=== PATIENT | female | born 1960 | race Caucasian/White ===

== ENCOUNTER 2024-12-06 14:19 | Emergency (ER) | payer OTHER, SELFPAY ==
--- NOTE | ~2024-12-06 | XR_ITS ---
Examination: XR chest 2V Clinical History: y Comparison: 11/07/2008 Technique: PA and Lateral Findings: Cardiomediastinal silhouette normal size and configuration. Left epicardial fat pad accounting for haziness. Right epicardial fat pad and/or skinfold. Lungs otherwise clear. No acute bony abnormality. IMPRESSION: 1. No acute cardiopulmonary findings. Reviewed, dictated and finalized at location R.
--- NOTE | 2024-12-06 14:22 | ED.SOB ---
HPI - SOB/Dyspnea General Chief Complaint: Upper Respiratory Infection Stated Complaint: hurts to breathe Time Seen by Provider: 12/06/24 14:22 Source: patient Mode of arrival: ambulatory Limitations: no limitations History of Present Illness HPI Narrative: Dianne is a 63-year-old female patient presenting to the clinic today with complaints of fever of 103? F, shortness of breath, body aches, chills, pain with taking deep breath, productive cough, and two tick bites to the left abdomen wall. Patient has history of COPD. Oxygen saturation 96% on room air. Patient is able to speak in full sentences. Patient's daughter removed takes from her left abdomen yesterday. Patient is unaware of how long the ticks were attached. Stated the area started itching yesterday. Developed fever this morning. All her other symptoms started last night. She took naproxen for her fever. Related Data Allergies Allergy/AdvReac Type Severity Reaction Status Date / Time codeine Allergy Mild NAUSEA Verified 12/06/24 14:35 Review of Systems Review of Systems: Pertinent positives per HPI. Patient denies any fever, chills, rash, headache, visual changes, dizziness, cough, shortness of breath, chest pain, palpitations, nausea, vomiting, diarrhea, constipation, abdominal pain, or any urinary issues. PMFSH Comments At the time of my signature, I reviewed and agree with the nursing past medical, surgical, social, and family history. There is no relevant family history pertinent to the patient complaint. Exam Narrative: General: Well-developed, morbidly obese, in no apparent distress Head: Normocephalic, atraumatic Eyes: Pupils equally round and reactive to light bilaterally, EOM intact, sclera and conjunctive clear, no discharge, lids normal Ears: TMs intact and congested, ear canals clear, no drainage, grossly hearing normal. Nose: Nares patent, clear nasal discharge, no inflammation, no sinus tenderness. Mouth: Oral pharynx without lesions or masses, good dentition, MMM. Neck: Supple, trachea midline, no enlargement of anterior or posterior cervical nodes, no thyroid masses or goiter palpable. Cardio: Regular rate and rhythm, s1 and s2 normal, no murmur appreciated. Resp: Inspiratory and expiratory wheezing, no rhonchi, rales, or rubs Integumentary: [place], warm, and dry, 2 red rash area to the left lateral abdomen wall with tick remnants- very mild induration. Redness measuring approximately 3 x 2 cm Course Course Emergency Course: Portions of this record may have been created with voice recognition software. Level of Care: Express Care Visit Vital Signs Vital signs: Vital Signs Temperature 37.2 C 12/06/24 14:26 Pulse Rate 102 H 12/06/24 14:26 Respiratory Rate 20 12/06/24 14:26 Blood Pressure 124/56 L 12/06/24 14:26 Pulse Oximetry 96 12/06/24 14:26 Oxygen Delivery Room Air 12/06/24 14:26 Temperature 37.2 C 12/06/24 14:26 Pulse Rate 94 12/06/24 15:06 Respiratory Rate 24 H 12/06/24 15:06 Blood Pressure 124/56 L 12/06/24 14:26 Pulse Oximetry 97 12/06/24 15:06 Oxygen Delivery Room Air 12/06/24 14:26 Vital signs reviewed MDM - SOB/Dyspnea MDM Narrative Medical decision making narrative: At the time of visit patient is resting comfortably on the exam table. Patient appears to be nontoxic. complaints of fever of 103? F, shortness of breath, body aches, chills, pain with taking deep breath, productive cough, and two tick bites to the left abdomen wall. Patient has history of COPD. Oxygen saturation 96% on room air. Patient is able to speak in full sentences. Patient's daughter removed takes from her left abdomen yesterday. Patient is unaware of how long the ticks were attached. Stated the area started itching yesterday. Developed fever this morning. All her other symptoms started last night. She took naproxen for her fever. On exam patient has clear nasal congestion, bilateral TM congestion, oral pharynx normal, lung sounds inspiratory and expiratory wheezing, heart rates regular rate and rhythm. Has two red rash area with retained tick remnants. Very mild induration. Redness measuring approximately 3 x 2 cm. Chest x-ray and DuoNeb hand-held neb treatment was ordered. Diagnostics: Chest x-rays negative for any acute cardiopulmonary process. Medications: DuoNeb Hand-held neb treatment given in the clinic today-this improved patient's lung aeration-patient feels breathing has improved. Procedure: Removal of tick foreign body to the left abdomen wall. Area was cleansed with alcohol and a 23 gauge needle was used to remove tick remnants. Patient tolerated well. Triple antibiotic ointment Band-Aid was applied. Plan: I suspect patient has COPD exacerbation/tick bites. Prescription for doxycycline and prednisone was sent to the pharmacy. Patient reports improvement of shortness of breath after breathing treatment. Supportive measures were discussed with the patient and they voiced understanding discharge instructions and agrees to treatment plan. Return precautions reviewed Differential Diagnosis Differential diagnosis: Likely acute exacerbation of chronic obstructive airways disease, congestive heart failure, community acquired pneumonia, asthma with exacerbation, pulmonary embolism and other (Tick bites-retained tick foreign body) Lab Data Labs: Lab Results 12/06/24 Range/Units 14:30 POC Influenza A Ag Negative (Negative) POC Influenza B Ag Negative (Negative) POC SARS CoV-2 Ag Negative (Negative) Imaging Data Radiologist's impression: ITS Impressions Chest X-Ray 12/06/24 14:49 IMPRESSION: 1. No acute cardiopulmonary findings. Discharge Plan Discharge Clinical Impression: Acute exacerbation of chronic obstructive pulmonary disease Tick bite of abdominal wall Qualifiers: Encounter type: initial encounter Qualified Code(s): S30.861A - Insect bite (nonvenomous) of abdominal wall, initial encounter Patient Disposition: Home Condition: Stable Instructions: Antibiotic Form, Tick Bite (ED), COPD (Chronic Obstructive Pulmonary Disease) (ED) Additional Instructions: Chest x-rays negative for any acute cardiopulmonary process. DuoNeb treatment given in the clinic today. Take prescription medications only as prescribed-doxycycline and prednisone Continue medications as prescribed Increase fluids and stay well hydrated May take Tylenol or motrin as directed on bottle for pain/fever May use Flonase 1 spray in each nare daily May take OTC antihistamines such as Zyrtec or Claritin daily as directed on bottle Go to the ED if you develop a worsening in your condition- high fever not controlled by Tylenol or Motrin, dehydration, weakness, lethargy, shortness of breath, or chest pain. Follow up with your PCP in 3-5 days if symptoms persist. Patient Language: Haitian Prescriptions: New prednisone 20 mg tablet 40 mg PO DAILY 5 Days Qty: 10 0RF doxycycline monohydrate 100 mg capsule 100 mg PO BID 7 Days Qty: 14 0RF Follow-up/Referrals: Jose Morton MD [Primary Care Provider, [facility]] Time of Disposition: 15:16 Quality NIHSS Nursing Documentation ED NIHSS nursing documentation: reviewed/agree
[2024-12-06 14:26] VITALS: BP 124/56; PULSE 102; RESP 20; TEMP 37.2; O2SAT 96
[2024-12-06 14:54] LABS: EDCOVIDSCREEN Negative (Negative); EDINFLUASCREEN Negative (Negative); EDINFLUBSCREEN Negative (Negative)
[2024-12-06] MEDS: IPRATROPIUM 0.5 MG/ALBUTEROL SULFATE 2.5 MG AMPUL.NEB 3 ML INHALATION (15:05)
[2024-12-06 15:06] VITALS: PULSE 97; RESP 24; O2SAT 94
[2024-12-06 15:21] VITALS: PULSE 98; RESP 22; O2SAT 96
== END 2024-12-06 15:26 | disposition home or self-care (01) ==
PROVIDERS: Emergency Provider Nurse Practitioner Family; PCP Emergency Medicine
DX: J44.1 Chronic obstructive pulmonary disease with (acute) exacerbation (principal); S30.861A Insect bite (nonvenomous) of abdominal wall, initial encounter; W57.XXXA Bitten or stung by nonvenomous insect and other nonvenomous arthropods, initial encounter; Z20.822 Contact with and (suspected) exposure to COVID-19; I10 Essential (primary) hypertension; Z87.891 Personal history of nicotine dependence
CPT/HCPCS: 71046; 87426; 87804; 94640; 99203; G0463